=== PATIENT | female | born 1995 | race African-American/Black ===

== ENCOUNTER 2016-09-30 01:07 | Emergency (ER) | payer SELFPAY ==
[~2016-09-30] VITALS: Ht 160 cm; Wt 71.0 kg
[~2016-09-30 01:07] MED LIST: FLAG500T PO; IBUP800T23 PO
[2016-09-30 01:09] VITALS: BP 135/75; PULSE 104; RESP 18; TEMP 99.3; O2SAT 98
--- NOTE | 2016-09-30 01:40 | PD ---
HPI Chief Complaint: Injury Time Seen by Provider: 01:33 Travel History International Travel<30 days: No Contact w/Intl Traveler<30days: No Traveled to known affect area: No History of Present Illness HPI 20-year-old female complains of left knee pain. Patient was at dance practice and persistent knee sideway. Patient denies any other injury. Patient states the pain is sharp pain localized left knee. Patient denies any pain radiation. Patient states the pain is worse with weightbearing or movement of the left knee joint. On a scale of 1-10 the pain is a 10. PFSH Past Medical History Anemia: Yes Blood Disorders: No Anxiety: Yes Depression: No Cancer: No Cardiovascular Problems: No Diabetes: No Endocrine: No Gastrointestinal Disorders: No Genitourinary: No Hepatitis: No Hiatal Hernia: No Immune Disorder: No Implanted Vascular Access Dvce: No Musculoskeletal: No Neurologic: Yes (per pt history of seizures) Psychiatric: Yes (ANXIETY) Reproductive: No Respiratory: No Seizures: Yes Thyroid Disease: No ?: Not LMP: 09/01/16 Past Surgical History Surgical History: No Previous Surgery AICD: No Joint Replacement: No Pacemaker: No Other Surgery: No Social History Alcohol Use: No Tobacco Use: No Substance Use: Yes Allergies-Medications (Allergen,Severity, Reaction): Coded Allergies: No Known Allergies (Unverified , 02/25/16) Reported Meds & Prescriptions Reported Meds & Active Scripts Active Ibuprofen 800 Mg Tab 800 Mg PO TID PRN Flagyl (Metronidazole) 500 Mg Tab 500 Mg PO BID 10 Days Review of Systems General / Constitutional: No: Fever Eyes: No: Visual changes HENT: No: Headaches Cardiovascular: No: Chest Pain or Discomfort Respiratory: No: Shortness of Breath Gastrointestinal: No: Abdominal Pain Genitourinary: No: Dysuria Musculoskeletal: Positive: Pain Skin: No Rash Neurologic: No: Weakness Psychiatric: No: Depression Endocrine: No: Polydipsia Hematologic/Lymphatic: No: Easy Bruising Physical Exam Narrative GENERAL: Well-nourished, well-developed patient. SKIN: Focused skin assessment warm/dry. HEAD: Normocephalic. EYES: No scleral icterus. No injection or drainage. NECK: Supple, trachea midline. No JVD or lymphadenopathy. CARDIOVASCULAR: Regular rate and rhythm without murmurs, gallops, or rubs. RESPIRATORY: Breath sounds equal bilaterally. No accessory muscle use. GASTROINTESTINAL: Abdomen soft, non-tender, nondistended. MUSCULOSKELETAL: Patient has moderate tenderness on palpation of the left knee. No tissue swelling no deformity noted. Limited range of motion of the left knee secondary to pain. Knee joints stable. No effusion noted. BACK: Nontender without obvious deformity. No CVA tenderness. Data Data Last Documented VS Vital Signs Date Time Temp Pulse Resp B/P Pulse Ox O2 Delivery O2 Flow Rate FiO2 09/30/16 01:09 99.3 104 18 135/75 98 Room Air Orders Knee, Ltd (1 Or 2vws) (09/30/16 01:36) Splint Or Brace Apply/Monitor (09/30/16 01:40) Crutches (09/30/16 01:40) MDM Medical Decision Making Medical Screen Exam Complete: Yes Emergency Medical Condition: Yes Interpretation(s) Last Impressions Knee X-Ray 09/30/16 0136 Signed Impressions: Service Date/Time: September 01:35 - CONCLUSION: Unremarkable limited examination of the left knee. Ilya Pereira MD Differential Diagnosis Differential diagnosis including sprain, fracture, dislocation. Narrative Course 20-year-old female with left knee injury. Knee immobilizer. Crutches given. Ibuprofen for pain. Diagnosis Primary Impression: Left knee sprain Qualified Code: S83.92XA - Sprain of left knee, unspecified ligament, initial encounter Patient Instructions: General Instructions Additional Instructions: Take medication as directed for pain. Ice pack as needed. Follow-up with orthopedist. Med/Other Pt SpecificInfo: Prescription(s) given Scripts Tramadol (Ultram)50 Mg Tab50 Mg PO Q6H PRN (PAIN) #20 TAB Prov:Tommy James MD 09/30/16 Meloxicam (Mobic)15 Mg Tab15 Mg PO DAILY #20 TAB Prov:Tommy James MD 09/30/16 Disposition: DISCHARGE HOME Condition: Stable Tommy James MD Sep 30, 2016 01:40
--- NOTE | 2016-09-30 02:03 | RADRPT ---
EXAM DATE/TIME: 09/30/2016 01:35 [facility] COMPARISON: No previous studies available for comparison. INDICATIONS : Left knee pain after patient twisted it dancing tonight MEDICAL HISTORY : None. SURGICAL HISTORY : None. ENCOUNTER: Initial ACUITY: 1 day PAIN SCORE: 10/10 LOCATION: Left entire knee FINDINGS: Two view examination of the left knee demonstrates no evidence of fracture or dislocation. Bony mine ralization is normal. The suprapatellar soft tissues have a normal configuration. CONCLUSION: Unremarkable limited examination of the left knee. Ilya Pereira MD on September 30, 2016 at 2:01 Board Certified Radiologist. This report was verified electronically.
[2016-09-30] MEDS ORDERED: ULTR50TA5 PO (02:21)
[2016-09-30] MEDS ORDERED: MOBI15TA PO (02:21)
== END 2016-09-30 02:53 | disposition home or self-care (01) ==
LOC: NEPE 01:07
DX: S83.92XA Sprain of unspecified site of left knee, initial encounter (principal); X50.1XXA Overexertion from prolonged static or awkward postures, initial encounter; Y93.41 Activity, dancing; D64.9 Anemia, unspecified
CPT/HCPCS: 73560; 99283; E0113; L1830

== ENCOUNTER 2017-03-17 17:43 | Emergency (ER) | payer SELFPAY ==
[~2017-03-17] VITALS: Ht 172.7 cm; Wt 80.0 kg
[~2017-03-17 17:43] MED LIST changes: +MOBI15TA PO; +ULTR50TA5 PO
[2017-03-17 17:47] VITALS: BP 130/90; PULSE 98; RESP 15; TEMP 98.4; O2SAT 98
== END 2017-03-17 18:00 | disposition left against medical advice (07) ==
LOC: NED 17:43
DX: Z53.21 Procedure and treatment not carried out due to patient leaving prior to being seen by health care provider (principal)
CPT/HCPCS: 99281